=== PATIENT | male | born 1960 | race Hispanic/Latino ===

== ENCOUNTER 2017-07-15 10:41 | Emergency (ER) | payer OTHER ==
[2017-07-15 11:20] LABS: Bilirubin,Urine NEG (Negative); Blood,Urine NEG (Negative); Ketones,Urine NEG (Negative); Leukocyte Esterase,Urine NEG (Negative); Nitrite,Urine NEG (Negative); Protein,Urine <15 mg/dL mg/dL (Negative); RBC,Urine < 1.0 /HPF (0.0-6.0); Urobilinogen,Urine < 2.0 mg/dL (<2.0)
[2017-07-15 11:40] LABS: Hematocrit 40.1 % (35.5-45.6); Hemoglobin 13.8 gm/dl (11.8-15.2); Mean Corpuscular HGB Conc 35 % (32-34); Mean Corpuscular Hemoglobin 30 pg (28-32); Mean Corpuscular Volume 86 fl (84-94); Platelet Count 233 K/mm3 (140-440); Red Blood Count 4.66 M/mm3 (3.65-5.03); Red Cell Distribution Width 14.4 % (13.2-15.2); White Blood Count 7.8 K/mm3 (4.5-11.0)
[2017-07-15 11:46] LABS: Basophils % (Auto) 0.8 % (0.0-1.8); Eosinophils % (Auto) 5.6 % (0.0-4.3)
[2017-07-15 11:53] LABS: Alanine Aminotransferase 13 units/L (7-56); Albumin 4.2 g/dL (3.9-5); Albumin/Globulin Ratio 1.1 %; Alkaline Phosphatase 90 units/L (35-129); Anion Gap 19 mmol/L; BUN/Creatinine Ratio 11.11; Blood Urea Nitrogen 10 mg/dL (9-20); Calcium 9.5 mg/dL (8.4-10.2); Carbon Dioxide 25 mmol/L (22-30); Chloride 100.5 mmol/L (98-107); Glucose 156 mg/dL (75-100); Lipase 42 units/L (13-60); Potassium 4.3 mmol/L (3.6-5.0); Sodium 140 mmol/L (137-145)
--- NOTE | 2017-07-15 12:47 | Emergency Department Report ---
ED Abdominal Pain HPI - General Chief Complaint: Abdominal Pain Stated Complaint: KIDNEY PAIN Time Seen by Provider: 07/15/17 12:35 Source: patient, family Mode of arrival: Ambulatory Limitations: No Limitations - History of Present Illness Initial Comments: Patient here reports that he is having right flank pain and denies any history of kidney stone. He denies any urinary burning frequency or urgency. Denies any nausea or vomiting. Denies any fever or chills. He said this happened 2 days ago and has been on and off. But he said that pain has been gradually increasing. He said pain increases with movement. Pain is 6 out of 10 and achy. Denies any blood in his urine. Patient has a history of diabetes, appendectomy for appendicitis. Family reports that their daughter 6 days ago and they've been really stressed out. Patient denies any chest pain or shortness of breath. He denies any abdominal pain. He said he cannot remember having an injury to his back. Neither any radiation of pain to his lower extremities or any loss of bowel or bladder function. He denies constipation. pain is only located to his right flank MD Complaint: flank pain Onset/Timin -: days(s) Location: R flank Radiation: none Migration to: no migration Severity: moderate Severity scale (0 -10): 6 Quality: aching Consistency: intermittent Improves With: rest Worsens With: vomiting Context: other (unknown) Associated Symptoms: denies: nausea, vomiting, diarrhea, fever, chills, constipation, dysuria, hematemesis, hematochezia, melena, hematuria, anorexia, syncope Treatments Prior to Arrival: other (none) - Related Data Previous Rx's Medication Instructions Recorded Last Taken Type Cyclobenzaprine [Flexeril] 10 mg PO TID PRN #15 tablet 07/15/17 Unknown Rx HYDROcodone/APAP 5-325 [[place] 1 each PO Q6HR PRN #12 tablet 07/15/17 Unknown Rx 5/325] Allergies Allergy/AdvReac Type Severity Reaction Status Date / Time ampicillin Allergy Rash Verified 07/15/17 10:48 ED Review of Systems ROS: Stated complaint: KIDNEY PAIN Other details as noted in HPI Comment: All other systems reviewed and negative Constitutional: denies: chills, fever Respiratory: no symptoms reported Cardiovascular: denies: chest pain, palpitations, edema, syncope Endocrine: denies: excessive sweating, flushing, increased hunger, increased thirst, increased urine, unexplained weight gain, unexplained weight loss Gastrointestinal: denies: abdominal pain, nausea, vomiting, diarrhea, constipation, melena, hematochezia Genitourinary: denies: urgency, dysuria, frequency, hematuria, discharge, testicular pain, testicular mass Musculoskeletal: back pain (RT flank pain). denies: joint swelling, arthralgia Skin: denies: rash Neurological: denies: headache, weakness, numbness, paresthesias, confusion, abnormal gait, vertigo Psychiatric: denies: suicidal thoughts ED Past Medical Hx - Past Medical History Previous Medical History?: Yes Hx Diabetes: Yes - Surgical History Past Surgical History?: Yes Hx Appendectomy: Yes Additional Surgical History: Rt. knee replacement, Bilat. rotator cuff surgery, Lap band - Family History Family history: diabetes - Social History Smoking Status: Never Smoker Substance Use Type: None Other Social History: - Medications Home Medications: Home Medications Medication Instructions Recorded Confirmed Last Taken Type Cyclobenzaprine [Flexeril] 10 mg PO TID PRN #15 tablet 07/15/17 Unknown Rx HYDROcodone/APAP 5-325 [[place] 1 each PO Q6HR PRN #12 tablet 07/15/17 Unknown Rx 5/325] ED Physical Exam - General Limitations: No Limitations General appearance: alert, in no apparent distress - Head Head exam: Present: atraumatic, normocephalic, normal inspection - Eye Eye exam: Present: normal appearance, PERRL, EOMI. Absent: scleral icterus, conjunctival injection, periorbital swelling, periorbital tenderness Pupils: Present: normal accommodation - ENT ENT exam: Present: normal exam, normal orophraynx, mucous membranes moist, TM's normal bilaterally, normal external ear exam - Neck Neck exam: Present: normal inspection, full ROM. Absent: tenderness, meningismus, lymphadenopathy - Respiratory Respiratory exam: Present: normal lung sounds bilaterally. Absent: respiratory distress, wheezes, rales, rhonchi, stridor, chest wall tenderness, accessory muscle use - Cardiovascular Cardiovascular Exam: Present: regular rate, normal rhythm, normal heart sounds - GI/Abdominal GI/Abdominal exam: Present: soft, normal bowel sounds. Absent: distended, tenderness, guarding, rebound, rigid, diminished bowel sounds, hyperactive bowel sounds, hypoactive bowel sounds, organomegaly, mass, bruit, pulsatile mass , hernia - Extremities Exam Extremities exam: Present: normal inspection, full ROM, normal capillary refill. Absent: tenderness, pedal edema, joint swelling, calf tenderness - Back Exam Back exam: Present: normal inspection, full ROM, CVA tenderness (R). Absent: tenderness, CVA tenderness (L), muscle spasm, paraspinal tenderness, vertebral tenderness, rash noted - Expanded Back Exam Expanded Back exam: Absent: saddle anesthesia Back exam: Negative Straight Leg Raising: Left, Right - Neurological Exam Neurological exam: Present: alert, oriented X3, normal gait, reflexes normal. Absent: motor sensory deficit - Expanded Neurological Exam Expanded Neurological exam: Absent: innattentive, memory loss-remote event, memory loss- recent event, ataxia, receptive aphasia, expressive aphasia, total aphasia, tremor, protecting the airway Patient oriented to: Present: person, place, time Speech: Present: fluid speech Cranial nerves: EOM's Intact: Normal, Gag Reflex: Normal, Nystagmus: Normal, Facial Sensation: Normal Cerebellar function: Romberg: Normal Upper motor neuron: Pronator Drift: Normal, Sensory Extinction: Normal Sensory exam: Upper Extremity Light Touch: Normal, Upper Extremity Temperature: Normal, UE 2 Point Discrimination: Normal, Lower Extremity Light Touch: Normal, Lower Extremity Temperature: Normal, LE 2 Point Discrimination: Normal Motor strength exam: RUE: 5, LUE: 5, RLE: 5, LLE: 5 DTR: bicep (R): 2+, bicep (L): 2+, tricep (R): 2+, tricep (L): 2+, knee (R): 2+ , knee (L): 2+, ankle (R): 2+, ankle (L): 2+ Best Eye Response (Garfield): (4) open spontaneously Best Motor Response (Garfield): (6) obeys commands Best Verbal Response (Jeremy): (5) oriented Jeremy Total: 15 - Psychiatric Psychiatric exam: Present: normal affect, normal mood - Skin Skin exam: Present: warm, dry, intact, normal color. Absent: rash ED Course Vital Signs 07/15/17 07/15/17 10:48 13:45 Temperature 97.7 F 97.8 F Pulse Rate 82 80 Respiratory 18 Rate Blood Pressure 137/90 Blood Pressure 138/88 [Left] O2 Sat by Pulse 99 99 Oximetry - Reevaluation(s) Reevaluation #1: 07/15/17 12:56 stable. [place] 5/325 2 tablets ordered. I went over his lab work with him and also he is waiting for CT scan of the abdomen and pelvis without contrast. Reevaluation #2: 07/15/17 14:10 Patient stable and is better. No pain now ED Medical Decision Making - Lab Data Result diagrams: 07/15/17 11:07 07/15/17 11:07 Lab Results 07/15/17 07/15/17 07/15/17 Range/Units 11:06 11:07 11:07 WBC 7.8 (4.5-11.0) K/mm3 RBC 4.66 (3.65-5.03) M/mm3 Hgb 13.8 (11.8-15.2) gm/dl Hct 40.1 (35.5-45.6) % MCV 86 (84-94) fl MCH 30 (28-32) pg MCHC 35 H (32-34) % RDW 14.4 (13.2-15.2) % Plt Count 233 (140-440) K/mm3 Lymph % (Auto) 40.7 H (13.4-35.0) % [place] % (Auto) 7.3 (0.0-7.3) % Eos % (Auto) 5.6 H (0.0-4.3) % Baso % (Auto) 0.8 (0.0-1.8) % Lymph # 3.4 (1.2-5.4) K/mm3 [place] # 0.6 (0.0-0.8) K/mm3 Eos # 0.5 H (0.0-0.4) K/mm3 Baso # 0.1 (0.0-0.1) K/mm3 Seg Neutrophils % 45.6 (40.0-70.0) % Seg Neutrophils # 3.8 (1.8-7.7) K/mm3 Sodium 140 (137-145) mmol/L Potassium 4.3 (3.6-5.0) mmol/L Chloride 100.5 (98-107) mmol/L Carbon Dioxide 25 (22-30) mmol/L Anion Gap 19 mmol/L BUN 10 (9-20) mg/dL Creatinine 0.9 (0.8-1.5) mg/dL Estimated GFR > 60 ml/min BUN/Creatinine Ratio 11.11 % Glucose 156 H (75-100) mg/dL Calcium 9.5 (8.4-10.2) mg/dL Total Bilirubin 0.80 (0.1-1.2) mg/dL AST 16 (5-40) units/L ALT 13 (7-56) units/L Alkaline Phosphatase 90 (35-129) units/L Total Protein 8.0 (6.3-8.2) g/dL Albumin 4.2 (3.9-5) g/dL Albumin/Globulin Ratio 1.1 % Lipase 42 (13-60) units/L Urine Color Yellow (Yellow) Urine Turbidity Clear (Clear) Urine pH 5.0 (5.0-7.0) Ur Specific [place] 1.033 H (1.003-1.030) Urine Protein <15 mg/dl (Negative) mg/dL Urine Glucose (UA) >=500 (Negative) mg/dL Urine Ketones Neg (Negative) mg/dL Urine Blood Neg (Negative) Urine Nitrite Neg (Negative) Urine Bilirubin Neg (Negative) Urine Urobilinogen < 2.0 (<2.0) mg/dL Ur Leukocyte Esterase Neg (Negative) Urine WBC (Auto) 1.0 (0.0-6.0) /HPF Urine RBC (Auto) < 1.0 (0.0-6.0) /HPF U Epithel Cells (Auto) < 1.0 (0-13.0) /HPF - Radiology Data Radiology results: report reviewed CT scan of the abdomen and pelvis without contrast revealed no acute abdominal processes. explanation for right flank pain. Patient has right renal cysts. No evidence for ascites, free air, again apparently or inflammatory changes. Small supraorbital umbilical ventral wall defect containing a tiny amount of fat. Kidneys are normal size and position. No evidence for calculus, hydronephrosis or perinephric fluid. The ureters or normal course and caliber. The bladder and prostate are unremarkable. The liver, biliary system spleen and adrenal glands are unremarkable pancreas with mild fatty atrophy. The lung bases are clear. No acute bony injuries identified. - Medical Decision Making ED course: Presented to the emergency room at his family report right flank pain 2 days. He was given [place] 5/325 mg 2 tablets emergency room which relieved this pain. Patient had lab work done with stable CBC and CMP with blood sugar of 156 otherwise stable. Patient urinalysis which shows no signs of infection. Patient was greater then 500 glucose and urine. He is a diabetic and he said he is on medication. CT scan of abdomen and pelvis without contrast did not show any processes. Patient with Rt renal cyst, supraumbilical ventral wall hernia with tiny amount of fat but stable. I discussed with patient that this his lab result was stable and a CT scan had no acute finding except for right renal cysts which she did not know about and he already knew about ventral hernia. stable at present and studies ready to go home. Patient discharged home with his in stable condition and will be referred to high school counselor regarding re-right renal cyst. Diagnostics/ labs: Please refer to radiology area for results of CT scan. He is referred to lab section for results of CBC/CMP and UA. Assessment/plan 1. Right flank pain-CT scan shows right renal cyst but no acute findings. No hematuria. Urinary tract infection 2. Stress disorder-patient 20-year-old daughter 6 days ago. 3. Right renal cyst 4. Ventral hernia-stable 5. Glucosuria-urinalysis showed greater than 500 glucose. Patient is a diabetic on medication Patient given prescription for [place] and Flexeril and instructed to follow up with his primary care in 3-5 days and also to follow up with high school counselor regarding right renal cyst. He voiced understanding of diagnosis and treatment plan. I also instructed family to have primary care refer for councelling Critical care attestation.: If time is entered above; I have spent that time in minutes in the direct care of this critically ill patient, excluding procedure time. ED Disposition Clinical Impression: Renal cyst, right, Rt flank pain, Glucosuria, Adult situational stress disorder Disposition: DC-01 TO HOME OR SELFCARE Is pt being admited?: No Does the pt Need Aspirin: No Condition: Stable Instructions: Grief and Loss (ED), Ventral Hernia (ED), Flank Pain (ED) Additional Instructions: You have a cyst on your right kidney and will need to follow-up with nephrology for further evaluation Please get some counseling regarding loss of child's Take medication as prescribed but these do not take [place]/flexeril while driving or operating heavy machinery as this medication will make to sleep You are also spilling glucose in urine and will need to follow up with your primary care doctor for diabetes. Prescriptions: Cyclobenzaprine [Flexeril] 10 mg PO TID PRN #15 tablet PRN Reason: Muscle Spasm HYDROcodone/APAP 5-325 [[place] 5/325] 1 each PO Q6HR PRN #12 tablet PRN Reason: Pain Referrals: GUY BLANKENSHIP MD [Primary Care Provider] - 3-5 Days
[2017-07-15] MEDS ORDERED: NORCO 5/325 PO ONE (13:02)
[2017-07-15 13:47] VITALS: BP 138/88
--- NOTE | 2017-07-15 13:47 | Cat Scan Report ---
CT OF THE ABDOMEN AND PELVIS WITHOUT CONTRAST HISTORY: Right flank pain. TECHNIQUE: Helical CT without contrast. Sagittal and coronal reformatted images. FINDINGS: No comparison. Heart size is normal. The lung bases are clear. No acute bony injury is appreciated. The kidneys are normal size and position. 2.8 cm cyst in the mid right kidney is noted. No evidence for calculus, hydronephrosis or perinephric fluid. The ureters are normal course and caliber. The bladder and prostate gland are unremarkable. The liver, biliary system, spleen and adrenal glands are unremarkable. There is mild fatty atrophy of the pancreas. A LAP band device appears to be in good position. The GI system is unremarkable given no oral contrast was administered. Appendectomy changes are suspected. No evidence for ascites, free air, adenopathy or inflammatory changes. Small supraumbilical ventral wall defect containing a tiny amount of fat is noted. IMPRESSION: No acute abdominal process. No clear explanation for right flank pain. Surgical changes as described. Right renal cyst.
== END 2017-07-15 14:40 | disposition home or self-care (01) ==
LOC: ED 10:41
DX: N28.1 Cyst of kidney, acquired (principal); R81 Glycosuria; F43.8 Other reactions to severe stress; E11.9 Type 2 diabetes mellitus without complications
CPT/HCPCS: 36415; 74176; 80053; 81001; 83690; 85025